=== PATIENT | male | born 1975 | race Caucasian/White ===

== ENCOUNTER → 2018-11-24 | Outpatient (CLI) | payer OTHER | LOC: FIMAGING 07:46 | PROVIDERS: ATTEND Internal Medicine | DX: K76.89 Other specified diseases of liver (principal); R59.0 Localized enlarged lymph nodes; R16.0 Hepatomegaly, not elsewhere classified; R50.9 Fever, unspecified ==

== ENCOUNTER → 2018-11-26 | Outpatient (CLI) | payer OTHER ==
[~2018-11-26] MED LIST: IOPAMIDOL (ISOVUE-300) 100 ML BTL ONE
== END ==
LOC: FIMAGING 10:31
PROVIDERS: ATTEND Internal Medicine
DX: R59.1 Generalized enlarged lymph nodes (principal); R93.2 Abnormal findings on diagnostic imaging of liver and biliary tract
CPT/HCPCS: Q9967